=== PATIENT | male | born 1955 | race Caucasian/White ===

== ENCOUNTER 2018-05-11 23:49 | Observation (INO) | payer BC ==
[~2018-05-11] VITALS: Ht 170.2 cm; Wt 108.4 kg
[~2018-05-11 23:49] MED LIST: CYCLOBENZAPRINE10 MG PO; FENOFIBRATE160 MG PO; HUMALOG100 UNITS/ SQ; JANUMET 50-5001 EACH PO; LEVEMIR100 UNIT/1 SC; LEVEMIR100 UNIT/1 SQ; LISINOPRIL2.5 MG PO; METFORMIN HCL500 M2 PO; NORCO 10-325 T1 EACH PO; PERCOCET 5-3251 EACH PO; SIMVASTATIN40 MG PO; VALIUM5 MG PO
[2018-05-11] MEDS ORDERED: ASPIRIN 81 MG CHEW TAB PO STA (23:56)
[2018-05-12] MEDS ORDERED: NOVOLOG100 UNITS1 SQ (00:06)
[2018-05-12] MEDS ORDERED: tresiba SQ (00:06)
[2018-05-12] MEDS ORDERED: TIZANIDINE HCL4 MG PO (00:08)
[2018-05-12] MEDS ORDERED: MELOXICAM7.5 MG PO (00:09)
[2018-05-12] MEDS ORDERED: LISINOPRIL10 MG PO (00:09)
[2018-05-12 00:18] LABS: BASOPHILS % 0.3 % (0.0-1.0); EOSINOPHILS # (AUTO) 0.1 (0.0-0.4); HEMATOCRIT 41.6 % (38.2-49.6); HEMOGLOBIN 13.8 g/dL (14.0-18.0); LYMPHOCYTES # (AUTO) 3.6 (1.0-3.2); LYMPHOCYTES % 37.1 % (18.0-39.1); MEAN CORPUSCULAR HEMOGLOBIN 27.5 pg (28-32); MEAN CORPUSCULAR HGB CONC 33.2 g/dL (31-35); MEAN CORPUSCULAR VOLUME 82.9 fL (81-99); MONOCYTES % 10.3 % (4.4-11.3); NEUTROPHILS # (AUTO) 4.9 (2.1-6.9); PLATELET COUNT 290 x10e3/uL (140-360); RED BLOOD COUNT 5.02 x10e6/uL (4.3-5.7); RED CELL DISTRIBUTION WIDTH 13.2 % (11.7-14.4)
[2018-05-12 00:22] LABS: INR 0.86; PROTHROMBIN TIME 12.5 seconds (11.9-14.5)
[2018-05-12 00:30] LABS: PARTIAL THROMBOPLASTIN TIME 28.6 seconds (23.8-35.5)
[2018-05-12 00:32] LABS: ALANINE AMINOTRANSFERASE 19 IU/L (0-55); ALBUMIN 4.3 g/dL (3.5-5.0); ALBUMIN/GLOBULIN RATIO 1.4 (0.8-2.0); ALKALINE PHOSPHATASE 40 IU/L (40-150); ANION GAP 17.3 mmol/L (8-16); BLOOD UREA NITROGEN 17 mg/dL (7-26); BUN/CREATININE RATIO 15 (6-25); CARBON DIOXIDE 21 mmol/L (22-29); CHLORIDE 104 mmol/L (98-107); CREATINE KINASE 167 IU/L (30-200); CREATININE, SERUM 1.15 mg/dL (0.72-1.25); EST GLOMERULAR FILTRATION RATE > 60 ML/MIN (60-); GLUCOSE 91 mg/dL (74-118); MAGNESIUM 2.3 MG/DL (1.3-2.1); POTASSIUM 4.3 mmol/L (3.5-5.1); SODIUM 138 mmol/L (136-145)
--- NOTE | 2018-05-12 01:03 | Diagnostic Imaging Report ---
EXAMINATION: CHEST SINGLE (PORTABLE) INDICATION: Chest pain. COMPARISON: None FINDINGS: TUBES and LINES: None. LUNGS: Lungs are not well inflated. Lungs are clear. There is no evidence of pneumonia or pulmonary edema. PLEURA: No pleural effusion or pneumothorax. HEART AND MEDIASTINUM: The cardiomediastinal silhouette is unremarkable. BONES AND SOFT TISSUES: No acute osseous lesion. Anterior cervical spine fusion partially visualized. Soft tissues are unremarkable. UPPER ABDOMEN: No free air under the diaphragm. IMPRESSION: No acute thoracic abnormality. Signed by: Dr. Lei Hampton M.D. on 05/12/2018 1:00 AM
[2018-05-12] MEDS ORDERED: SODIUM CHLORIDE 0.9% 1000ML 1,000 ML IV STA (01:10)
[2018-05-12] MEDS ORDERED: NITROGLYCERIN 0.4 MG SUBL SL PRN (01:30)
[2018-05-12] MEDS ORDERED: DEXTROSE 50% SYRINGE 50 ML IV PRN (01:30)
[2018-05-12] MEDS ORDERED: MORPHINE SULFATE 2 MG/ML SYR IV PRN (01:30)
[2018-05-12] MEDS ORDERED: ONDANSETRON HCL INJ 2 MG/ML VIAL IV PRN (01:30)
[2018-05-12] MEDS ORDERED: ENOXAPARIN SODIUM INJ 100 MG/ML SYR SC ONE (01:30)
[2018-05-12] MEDS ORDERED: IOPAMIDOL 370 MG/ML 200 ML INFUS..BTL INJ ONE (01:32)
[2018-05-12] MEDS ORDERED: SODIUM CHLORIDE 0.9% 100 ML 100 ML ONE (01:32)
[2018-05-12 01:38] LABS: AMPHETAMINES SCREEN,URINE NEGATIVE (NEGATIVE); BENZODIAZEPINES SCREEN,URINE NEGATIVE (NEGATIVE); PHENCYCLIDINE SCREEN,URINE NEGATIVE (NEGATIVE)
[2018-05-12 01:42] LABS: BILIRUBIN,URINE NEGATIVE (NEGATIVE); CLARITY,URINE CLOUDY (CLEAR); COLOR,URINE YELLOW (YELLOW); KETONES,URINE NEGATIVE (NEGATIVE); LEUKOCYTE ESTERASE ,URINE NEGATIVE (NEGATIVE); NITRITE,URINE NEGATIVE (NEGATIVE); PROTEIN,URINE DIPSTICK NEGATIVE (NEGATIVE); URINE UROBILINOGEN 0.2 mg/dL (0.2 - 1)
[2018-05-12 01:52] LABS: AMORPHOUS SEDIMENT,URINE MANY (FEW); BACTERIA,URINE RARE /HPF; EPITHELIAL CELLS,URINE RARE /LPF
--- NOTE | 2018-05-12 03:03 | Diagnostic Imaging Report ---
EXAM: CT Chest WITH contrast 05/12/2018 1:10 AM INDICATION: Pulmonary embolism COMPARISON: None TECHNIQUE: Chest was scanned utilizing a multidetector helical scanner from the lung apex through the level of the adrenal glands without administration of IV contrast. Coronal and sagittal reformations were obtained. Routine protocol was performed. IV CONTRAST: 81 mL of Isovue-370 RADIATION DOSE: Total DLP: 630.62 mGy*cm Estimated effective dose: (DLP x 0.014 x size factor) mSv COMPLICATIONS: None FINDINGS: LINES/ TUBES: None. LUNGS AND AIRWAYS: The lungs are unremarkable. Airways are normal. PLEURA: The pleural spaces are clear. HEART AND MEDIASTINUM: The thyroid gland is normal. No mediastinal, hilar or axillary lymphadenopathy. The heart is normal in size.. There is no pericardial effusion. Aorta and coronary arteries are unremarkable. UPPER ABDOMEN: Diffuse hepatic steatosis. Visualized spleen, adrenals, pancreas and gallbladder are unremarkable. There is a partially visualized 6 cm simple cyst in the upper pole of the left kidney. BONES: The visualized bony thorax is within normal limits. Anterior cervical spine fusion with plates and screws SOFT TISSUES: Unremarkable. IMPRESSION: 1. No evidence of acute pulmonary emboli 2. Incompletely evaluated left renal cyst in the upper pole measuring at least 6 cm. 3. Diffuse hepatic cirrhosis. Signed by: Dr. Lei Hampton M.D. on 05/12/2018 2:04 AM
[2018-05-12 06:48] LABS: CREATINE KINASE 141 IU/L (30-200)
[2018-05-12] MEDS ORDERED: INSULIN REGULAR, HUMAN 100 UNIT/1 ML 3ML VIAL SQ SCH (07:30)
[2018-05-12] MEDS ORDERED: ASPIRIN 81 MG ENTERIC COATED PO SCH (09:00)
[2018-05-12] MEDS ORDERED: FAMOTIDINE 20 MG/2 ML VIAL IV SCH (09:00)
[2018-05-12 10:15] VITALS: BP 133/68
--- NOTE | 2018-05-12 10:17 | History and Physical ---
CHIEF COMPLAINT: Chest pain. HISTORY OF PRESENT ILLNESS: This is a 62-year-old white man that presents to [facility] emergency room with sudden onset of nonradiating left-sided chest discomfort. The patient states the pain was actually in the left chest, left axillary area. The patient also notes that the sharp pain became worse with deep inspiration. The patient denies any fever or chills. The patient also denies any coughing. The patient states he has not had any upper respiratory infection type symptoms lately. The patient denied any associated diaphoresis or nausea. In the emergency room, a 12-lead EKG was unremarkable. The patient has already had 2 sets of cardiac enzymes, which are completely normal. The patient's triglycerides were 154 mg/dL. The patient's LDL cholesterol is 48 mg/dL. The patient is a diabetic. In the emergency room, the patient was found to have a glucose level of 91 mg/dL. The patient had a chest x-ray done in the emergency room, which did not reveal any acute intrathoracic pathology. The patient also underwent a CT of the chest with intravenous contrast that did not reveal any evidence of acute pulmonary emboli, but did reveal findings consistent with diffuse hepatic cirrhosis. The patient states that he does drink alcohol on a regular basis in the form of beer. The patient was admitted for further evaluation and treatment. REVIEW OF SYSTEMS GENERAL: Weight has been stable. No fever or chills. HEENT: No headache or double vision. CARDIOVASCULAR/RESPIRATORY: Left-sided chest pain as per HPI. The patient's chest pain did worsen with deep inspiration. The patient denies any cough or chest congestion. The patient also denies any upper respiratory infection type symptoms. GI: No nausea with the chest discomfort. : No BPH or UTI symptoms. NEUROMUSCULAR: Complained of pain in the left chest and left axillary area. The patient denies any neuropathic type pain. PAST MEDICAL HISTORY 1. Type 2 diabetes mellitus. 2. Stage 2 coronary artery disease. 3. Hypertensive heart disease. 4. Obesity. BMI 37. 5. Fatty liver cirrhosis, likely. 6. Chronic alcohol use. 7. Dyslipidemia. FAMILY HISTORY: No history of coronary artery disease. SOCIAL HISTORY: The man is and lives with his . 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 He states he has a sedentary job. The patient quit smoking tobacco in 1981. The patient drinks alcohol in the form of beer on a regular basis. ALLERGIES 1. PENICILLIN. 2. PEANUTS. HOME MEDICATIONS 1. Flexeril 10 mg at bedtime. 2. Fenofibrate 150 mg at bedtime. 3. [place] 10 per 325 mg 1 every 6 hours p.r.n. pain. 4. NovoLog insulin 18 units subcutaneous b.i.d. 5. Lisinopril 10 mg daily. 6. Meloxicam 7.5 mg b.i.d. p.r.n. arthritic pain. 7. Metformin 1000 mg b.i.d. 8. Simvastatin 40 mg at bedtime. 9. Tizanidine 4 mg at bedtime. 10. Tresiba insulin 50 units subcutaneous daily. PHYSICAL EXAMINATION GENERAL: He is awake, alert and in no acute distress. Very pleasant and cooperative with exam. His is at bedside. VITALS: Blood pressure is 130/80, heart rate 72, respiratory rate 16, oxygen saturation 100% on room air. Height is 5 feet 7 inches, weight 235 pounds. BMI is 37. Temperature was 96.6. INTEGUMENT: Skin is warm and dry. No pallor or diaphoresis appreciated. Sclerae clear. Moist mucous membranes. The patient has numerous skin tags particularly in his bilateral axillary area. NECK: Supple. Difficult to assess for jugular venous distention because of the patient's body habitus. CARDIOVASCULAR: Normal heart sounds. Regular rate and rhythm. LUNGS: No rales. No rhonchi or wheezing. ABDOMEN: Obese and benign. Difficult to assess for organomegaly or masses because of the patient's body habitus. EXTREMITIES: No edema or deformity. NEUROLOGIC: Intact. IMPRESSION 1. Atypical chest pain, likely musculoskeletal in origin. 2. Type 2 diabetes mellitus. 3. Stage 2 chronic kidney disease. 4. Hypertensive heart disease. 5. Chronic alcohol use. 6. Fatty liver cirrhosis, likely. 7. Obesity: Body mass index 37. RECOMMENDATIONS 1. Highly recommend the patient not drink alcohol. 2. Informed the patient if he must drink alcohol he should not drink more than 2 alcoholic drinks in a 24-hour period. 3. Will continue home medications. 4. Consult cardiology. 5. Review results of echocardiogram. 6. 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 7. Recommend the patient return to the emergency room immediately if he has any recurrence of chest pain. I spent an hour in the care of this patient. Job#: [id number] SHARI
--- NOTE | 2018-05-12 13:15 | Consultation ---
DATE OF CONSULTATION: May 12, 2018 CARDIOLOGY CONSULTATION INDICATIONS: Chest pain. HISTORY OF PRESENT ILLNESS: Mr. Mckeon is 62 years old with history of diabetes, hypertension, hypertensive heart disease, cirrhosis, as well as morbid obesity. He comes in complaining of new onset of left-sided chest pain. This was when he was sleeping and became worse on deep inspiration. His CT scan of the chest in the ER revealed no evidence of pulmonary emboli. His cardiac enzymes are negative. He is currently pain free. PAST MEDICAL HISTORY: As listed above. SOCIAL HISTORY: Patient does not smoke. He had quit smoking in 1981. He drinks beer on a daily basis. He is to his . ALLERGIES: PENICILLIN AND PEANUTS. MEDICATIONS: Reviewed. REVIEW OF SYSTEMS: Is negative except as dictated in the history of present illness. PHYSICAL EXAMINATION: VITALS: Afebrile. Heart rate 72. Blood pressure is 130/80. O2 sat is 100%. CARDIOVASCULAR: Regular rhythm. No murmurs or gallops. LUNGS: Clear to auscultation bilaterally. ABDOMEN: Distended. Bowel sounds heard adequately. Soft. EXTREMITIES: No edema. Pedal pulses are 1+. ASSESSMENT: 1. Angina, unstable. 2. Diabetes mellitus. RECOMMENDATION: Patient has been ruled out for myocardial infarction. Echocardiogram shows preserved LV systolic function. He will be scheduled as an outpatient for an exercise nuclear stress test. I thank Dr. Canseco for this consultation. Job#: [id number] EV
--- OUTSIDE RECORDS SUMMARY | 2018-05-12 14:30 | XMS REPORT ---
Author Author [facility] Address Unknown Phone Unavailable Care Team Providers Care Cleat Blanker Name Role Phone ANNEL HONG Unavailable Unavailable Problems This patient has no known problems. Allergies, Adverse Reactions, Alerts This patient has no known allergies or adverse reactions. Medications This patient has no known medications. Results Test Description Test Time Test Comments Text Results Atomic Results Result Comments CT CHEST W 2018-05-12 02:02:00 [facility] [address] [address] Patient Name: Jackie VALLE MR #: [id number] : 1955 Age/Sex: 62/M Req #: [id number] [facility] Physician: ANNEL HONG MD Ordered by: GEOFF GIFFORD MD Report #: [id number] Location: [facility] Room/Bed: [address] [address] Procedure: [id number] CT/CT CHEST W Exam Date: Exam Time: REPORT STATUS: Signed EXAM: CT Chest WITH contrast 05/12/2018 1:10 AM INDICATION: Pulmonary emboli sm COMPARISON: None TECHNIQUE: Chest was scanned utilizing a multidetector helical scanner from the lung apex through the level of the adrenal glands without administration of IV contrast. Coronal and sagittal reformations were obtained. Routine protocol was performed. IV CONTRAST: 81 mL of Isovue-370 RADIATION DOSE: Total DLP: 630.62 mGy*cm Estimated effective dose: (DLP x 0.014 x size factor) mSv COMPLICATIONS: None FINDINGS: LINES/ TUBES: None. LUNGS AND AIRWAYS: The lungs are unremarkable. Airways are normal. P LEURA: The pleural spaces are clear. HEART AND MEDIASTINUM: The thyroid gland is normal. No mediastinal, hilar or axillary lymphadenopathy. The heart is normal in size.. There is no pericardial effusion. Aorta and coronary arteries are unremarkable. UPPER ABDOMEN: Diffuse hepatic steatosis. Visualized spleen, adrenals, pancreas and gallbladder are unremarkable. There is a partially visualized 6 cm simple cyst in the upper pole of the left kidney. BONES: The visualized bony thorax is within normal limits. Anterior cervical spine fusion with plates and screws SOFT TISS UES: Unremarkable. IMPRESSION: 1. No evidence of acute pulmonary emboli 2. Incompletely evaluated left renal cyst in the upper pole measuring at least 6 cm. 3. Diffuse hepatic cirrhosis. Signed by: Dr. Lei Hampton M.D. on 05/12/2018 2:04 AM Dictated By: LEI DAVISON MD 3 Transcribed By: GRETTA on 05/12/18203 COPY TO: GEOFF GIFFORD MD CHEST SINGLE (PORTABLE) 2018-05-12 01:00:00 [address] [address] Patient Name: Jackie VALLE MR #: [id number] : 1955 Age/Sex: 62/M Req #: [id number] Adm Physician: Ordered by: GEOFF GIFFORD MD Report #: [id number] Location: ER Room/Bed: Procedure: [id number] DX/CHEST SINGLE (PORTABLE) Exam Date: 05/12/18 Exam Time: 2359 REPORT STATUS: Signed EXAMINATION: CHEST SINGLE (PORTABLE) INDICATION: Chest pain. COMPARISON: None FINDINGS: TUBES and LINES: None. LUNGS: Lungs are not well inflated. Lungs are clear. There is no evidence of pneumonia or pulmonary edema. PLEURA: No pleural effusion or pneumothorax. HEART AND MEDIASTINUM: The cardiomediastinal silhouette is unremarkable. BONES AND SOFT TISSUES: No acute osseous lesion. Anterior cervical spine fusion partially visualized. Soft tissues are unremarkable. UPPER ABDOMEN: No free air under the diaphragm. IMPRESSION: No acute thoracic abnormality. Signed by: Dr. Lei Hampton M.D. on 05/12/2018 1:00 AM Dictated By: LEI DAVISON MD Transcribed By: GRETTA on COPY TO: GEOFF GIFFORD MD
== END 2018-05-12 11:25 | disposition home or self-care (01) ==
LOC: ER 23:49 → ERHOLD 05-12 01:29 → UNDOADMIN 05-12 01:51
PROVIDERS: ADMIT Internal Medicine; ATTEND Internal Medicine
DX: R07.89 Other chest pain (principal); E78.5 Hyperlipidemia, unspecified; I25.10 Atherosclerotic heart disease of native coronary artery without angina pectoris; E66.9 Obesity, unspecified; Z68.37 Body mass index [BMI] 37.0-37.9, adult; F10.20 Alcohol dependence, uncomplicated; E11.22 Type 2 diabetes mellitus with diabetic chronic kidney disease; I13.10 Hypertensive heart and chronic kidney disease without heart failure, with stage 1 through stage 4 chronic kidney disease, or unspecified chronic kidney disease; N18.2 Chronic kidney disease, stage 2 (mild); Z88.0 Allergy status to penicillin; Z91.010 Allergy to peanuts; Z87.891 Personal history of nicotine dependence; Z79.4 Long term (current) use of insulin
CPT/HCPCS: 36415; 71045; 71260; 80053; 80061; 80307; 81001; 82550; 82553; 83735; 83880; 84484; 85025; 85379; 85610; 85730; 93005; 93306; 99284; G0378; J1650; J7030; Q9967

== ENCOUNTER → 2020-03-13 | Outpatient (CLI) | payer BC ==
[~2020-03-13] MED LIST changes: +LISINOPRIL10 MG PO; +MELOXICAM7.5 MG PO; +NOVOLOG100 UNITS1 SQ; +TIZANIDINE HCL4 MG PO; +tresiba SQ
--- NOTE | 2020-03-13 16:58 | Diagnostic Imaging Report ---
X-ray right hip multiple views History: Hip pain. Fall a few days ago. Hard to do weightbearing. Comparison: None Findings: No acute fracture, subluxation, other soft tissue abnormality of significance. The bones are well mineralized. No definite lytic lesions are seen. Multiple injection granulomas in the right hip. Mild osteoarthritic changes of the hip joint suspected. Impression: There is no acute fracture on this exam. A hip fracture can sometimes be missed on plain film in the early phase. If there is a strong clinical concern, a CT or preferably MRI may be performed for better evaluation. Signed by: Mirza Amezquita MD on 03/13/2020 4:54 PM
== END ==
LOC: RAD 16:07
PROVIDERS: ATTEND Internal Medicine
DX: M16.11 Unilateral primary osteoarthritis, right hip (principal)